=== PATIENT | male | born 1970 | race Caucasian/White ===

== ENCOUNTER 2017-01-25 18:30 | Emergency (ER) | payer OTHER ==
--- NOTE | 2017-01-25 21:12 | ED CLINICAL REPORT ---
Clinical Report - Physicians/Mid Levels [facility] [address] [place] [address] 01/25/2017 18:31 Patient: LENCHO MCDONALD Time Seen: 1921. Arrived- By private vehicle. Historian- patient. HISTORY OF PRESENT ILLNESS Chief Complaint: CHEST PAIN. At its maximum, severity described as moderate. When seen in the E.D., severity described as moderate. Modifying factors- worsened by deep breaths. Not relieved by anything. This started past few days and is still present (unchanged). It was abrupt in onset and has been constant and waxing/waning but is not gone now. Onset during rest. It is described as burning and it is described as located in the central chest area. No radiation. No nausea, vomiting or difficulty breathing. He has experienced diaphoresis. No additional chest pain. Similar symptoms previously: None. Recent medical care: Not recently seen/assessed. REVIEW OF SYSTEMS No fever, chills or pedal edema. All systems otherwise negative, except as recorded above. PAST HISTORY See nurses notes. Denies the following risk factors for DVT/PE - history of DVT and pulmonary embolism, recent surgery, recent RI and congestive heart failure. Denies the following risk factors for DVT/PE - cancer, clotting disorder, estrogens, obesity and immobility. Denies the following risk factors for DVT/PE - advanced in age and vena cava filter. Additional Surgeries: no known surgeries. Medications: Simvastatin Oral. Lisinopril Oral. ASA Oral. Doxycycline Hyclate Oral. Tramadol HCL Oral. TraZODone HCl Oral. Famotidine Oral. DULoxetine HCl Oral. Allergies: Penicillin. SOCIAL HISTORY Smoker- current status unknown. History of occasional drug use: marijuana. No alcohol use. No recent travel. Is a local resident. ADDITIONAL NOTES The nursing notes have been reviewed. PHYSICAL EXAM Vital Signs: 01/25/2017 18:41 BP: 154/80. HR: 62. RR: 18. O2 saturation: 95%. Temp: 98.8 F. Blood pressure normal. Oxygen saturation normal. Appearance: Alert. Oriented X3. No acute distress. Eyes: Pupils equal, round and reactive to light. Eyes normal inspection. ENT: Ears normal. Nose normal. Pharynx normal. Neck: Normal inspection. Neck supple. CVS: Normal heart rate and rhythm. Heart sounds normal. Pulses normal. No decreased pulses. Respiratory: No respiratory distress. Mild bilateral wheezes diffusely (R > L). Breath sounds normal. Chest nontender. No rales or rhonchi. Abdomen: Soft and nontender. Bowel sounds normal. No mass. Skin: Skin warm and dry. Normal skin color. No rash. Normal skin turgor. Extremities: Extremities exhibit normal ROM. No lower extremity edema. Neuro: Oriented X 3. No motor deficit. No sensory deficit. LABS, X-RAYS, AND EKG EKG: No acute process. No acute ischemia. Normal EKG. Normal sinus rhythm. Rate: 61. Normal P waves. Normal NICOLAS. Normal QRS complex. Normal axis. Normal ST and T waves, QT and QTc. The study has been interpreted contemporaneously. The study has been independently viewed by me. The EKG appears to be a good tracing. Chest X-ray: (PROCEDURE: XR CHEST 2 VIEW INDICATION: CHEST PAIN TECHNIQUE: PA and lateral view. COMPARISON: Chest x-ray 03/11/2014. FINDINGS: Lungs are clear. Cardiovascular structures are normal. Old left rib fracture. IMPRESSION: 1. Negative chest.). The X-rays were independently viewed by me and interpreted by the radiologist. The X-rays were discussed with the radiologist (via pacs). Laboratory Tests: CBC w Diff: (DELFIN: 01/25/2017 20:00) ( MsgRcvd 01/25/2017 20:14) Final results Test Result Flag Units (Reference) WHITE BLOOD COUNT 5.0 K/uL (4.5-11.5) RED BLOOD COUNT 5.46 M/uL (4.50-5.90) HEMOGLOBIN 16.6 gm/dL (13.5-17.5) HEMATOCRIT 49.2 % (41.0-53.0) MEAN CELL VOLUME 90 fL (80-100) MEAN CORPUSCULAR HGB 30 pg (26-34) MEAN CORPUSCULAR HGB CONC 34 g/dL (31-37) RED CELL DISTRIBUTION WIDTH 13.1 % (11.6-14.8) PLATELET COUNT 202 K/uL (150-400) NEUTROPHIL % 58.1 % (50-75) LYMPH % 24.3 L % (25-40) MONO % 15.1 H % (3-14) EOSINOPHIL % 2.1 % (0-4) BASOPHIL % 0.4 % (0-2) PT with INR: (DELFIN: 01/25/2017 20:00) ( [facility] 01/25/2017 20:38) Final results Test Result Flag Units (Reference) INR 1.0 (0.8-1.2) Low Intensity Therapy: INR 1.5-2.0 PT range 18.5-23.1Mod.Intensity Therapy: INR 2.0-3.0 PT range 23.1-31.5High Intensity Therapy: INR 2.5-3.5 PT range 27.4-35.5High Intensity Therapy 2: INR 3.0-4.0 PT range 31.5-39.3 D-DIMER QUANTITATIVE 0.27 ug/mLFEU (0.27-0.52) The primary value of this quantitative assay relates toits negative predictive value (i.e. exclusion) of pulmonaryembolism/deep vein thrombosis/DIC.Elevated levels of d-dimer may also occur with:, age, cancer, inflammation, liver disease,post-op, infection, hematoma, coronary disease, peripheralarteriopathy, bleeding disorders and thrombolytic treatment.Results should be correlated with other clinical andradiological data.Testing Methodology: Latex Immunoassay CMP: (DELFIN: 01/25/2017 20:00) ( [facility] 01/25/2017 20:32) Final results Test Result Flag Units (Reference) GLUCOSE 103 mg/dL (70-110) BUN 8 mg/dL (7-18) CREATININE 0.7 mg/dL (0.6-1.3) Estimated GFR >60 mL/min Estimated GFR- >60 mL/min Note: Persistent reduction over 3 months in eGFR<60 mL/min/1.73 m2 defines CKD. Patients with eGFR values>=60 mL/min/1.73 m2 may also have CKD if evidence ofpersistent proteinuria. Additional information may be foundat www.kidney.org. SODIUM 139 mmol/L (136-145) POTASSIUM 3.2 L mmol/L (3.5-5.1) CHLORIDE 100 mmol/L (98-107) CARBON DIOXIDE 29 mmol/L (21-32) CALCIUM 8.7 mg/dL (8.5-10.1) TOTAL PROTEIN 7.4 g/dL (6.4-8.2) ALBUMIN 3.6 g/dL (3.3-5.0) BILIRUBIN, TOTAL 0.5 mg/dL (0.0-1.0) ALKALINE PHOSPHATASE 79 U/L (46-116) AST (SGOT) 45 H U/L (15-37) ALT (SGPT) 54 U/L (12-78) TROPONIN I <0.05 L ng/mL (0.00-1.5) TROPONIN REFERENCE RANGE:<0.1 NEGATIVE0.1-1.5 INDETERMINANT>1.5 POSITIVE . PROGRESS AND PROCEDURES Course of Care: The patient is a pleasant 46-year-old male no pertinent past medical history presenting for evaluation of chest pain. Appears to be atypical in nature. At this time differential diagnosis includes pulmonary embolism, acute myocardial infarction, pneumonia. Patient is agreeable to the treatment plan. Patient will be evaluated with troponin, d-dimer, EKG, chest x-ray, Complete blood count cell count and CMP. patient appears nontoxic and is in no acute distress. Workup has been ordered. Patient's laboratory studies are remarkable for the findings above. White blood cell count is noted to be 5.0. Troponin is noted to be negative. D-dimer is also normal. With the patient's negative d-dimer, do not feel patient has pulmonary embolism, or thoracic aortic dissection. Patient's EKG also was unremarkable. With a negative troponin. Do not feel patient has acute myocardial infarction. Of note patient states that he might feel better with albuterol. Discussed with patient utility of abx. Patient agreeable to abx treatment. Feel the benefits outweigh the risks at this time. CLINICAL IMPRESSION 01/25/2017 19:45 BP: 138/88. HR: 60. RR: 16. O2 saturation: 94%. Pain level now: 0/10. Blood pressure normal. Oxygen saturation normal. Atypical chest pain .12 lead EKG performed. Acute bacterial bronchitis. Acute bronchospasm INSTRUCTIONS Warnings: GENERAL WARNINGS: Return or contact your physician immediately if your condition worsens or changes unexpectedly, if not improving as expected, or if other problems arise. SPECIFICALLY, return if you develop chest, neck, jaw, shoulder, arm, or back pain, difficulty breathing, a fluttering sensation in your chest, lightheadedness, fainting, excessive fatigue, or sudden sweating. Your Current Medications: CONTINUE TAKING THE FOLLOWING MEDICATIONS: ASA Oral. Doxycycline Hyclate Oral. DULoxetine HCl Oral. Famotidine Oral. Lisinopril Oral. Simvastatin Oral. Tramadol HCL Oral. TraZODone HCl Oral. Prescription Medications: Albuterol HFA oral inhaler: inhale 1-2 puffs via spacer every 4 hours as needed for wheezing, difficulty breathing or shortness of breath. Dispense one (1) unit. No refill. Zithromax Z-Gomez: Take according to package instructions. No refills. Substitution is permissible. Prednisone 50 mg: take 1 orally for 5 days. Dispense five (5). No refills. Follow-up: Return to the emergency department as needed. Follow up with your doctor in three days. Reason for referral: recheck today's concerns. Summary of care provided to patient via paper. Screening today revealed the patient's blood pressure to be in the normal range. The patient should follow up with a primary care provider for blood pressure management. Understanding of the discharge instructions verbalized by patient. (Electronically signed by Romario Currie Dr. 02/02/2017 4:26)
--- NOTE | 2017-01-25 21:13 | ED ORDER SUMMARY ---
..... Patient: LENCHO MCDONALD OrderSheet [facility] VisitID: [id number] [place] [address] 46y, M Registration Date/Time: 01/25/2017 ORDER SHEET Weight: 90.7 kg (stated) Allergies: Penicillin GENERAL ORDERS: Round Up Ring Hand (Continuous) (chest pain) (19:01/25/2017 Dimitry Maddox) (Ack 19:29 OSnell) (20:07 CARLIEradburn R.N.) CBC w Diff Urgent (:01/25/2017 Dimitry Maddox) (Ack 19:29 OSnell) (20:07 Roxanne R.N.) CMP Urgent (:01/25/2017 Dimitry Maddox) (Ack 19:29 OSnell) (20:07 Roxanne R.N.) PT with INR Urgent (:01/25/2017 Dimitry Maddox) (Ack 19:29 OSnell) (20:07 CARLIEradburn R.N.) D-Dimer Urgent (19:01/25/2017 Dimitry Maddox) (Ack 19:29 OSnell) (20:07 Roxanne R.N.) Troponin-I Urgent (:01/25/2017 Dimitry Maddox) (Ack 19:29 OSnell) (20:07 Roxanne R.N.) Pulse oximeter (:01/25/2017 Dimtiry Maddox) (Ack 19:29 OSnell) (19:57 CARLIEradburn R.N.) EKG - ER Stat (:01/25/2017 Dimitry Maddox) (Ack 19:28 OSnell) (19:57 Roxanne R.N.) Chest 2V Urgent (19:34 01/25/2017 Dimitry Maddox) (Ack 19:40 OSnell) (20:24 CBradburn R.N.) MEDICATION ORDERS: DuoNeb Neb Tx 1 unit dose (NOW) (20:16 01/25/2017 Dimitry Maddox) (Ack 20:17 HSoule) (20:41 HSoule) GI Cocktail WHITE PO 30 mL (NOW) (20:38 01/25/2017 Dimitry Maddox) (Ack 20:41 HSoule) (20:47 CBboyd R.N.) Albuterol Neb Tx 5 mg (once now) (21:01 01/25/2017 Dimitry Maddox) (Ack 21:17 CBrademerald R.N.) (21:18 CBboyd R.N.) Prednisone PO 60 mg (NOW) (21:10 01/25/2017 Dimitry Maddox) (21:37 Roxanne R.N.) Azithromycin PO 500 mg (NOW) (21:11 01/25/2017 Dimitry Maddox) (21:37 Roxanne R.N.) IV FLUIDS: IV Saline Lock (19:27 01/25/2017 Dimitry Maddox) (Ack 19:52 CBrademerald R.N.) (20:07 Roxanne R.N.) ORDER SHEET NOTES: [Electronically signed by Veronique Michele R.N. (22:09 01/25/2017)] [Electronically signed by Romario Currie Dr. (04:26 02/02/2017)] [Electronically locked/signed by Veronique Michele R.N. (22:09 01/25/2017)]
--- NOTE | 2017-01-25 21:13 | ED ORDER SUMMARY ---
..... Patient: LENCHO MCDONALD OrderSheet [facility] VisitID: [id number] [place] [address] 46y, M Registration Date/Time: 01/25/2017 ORDER SHEET Weight: 90.7 kg (stated) Allergies: Penicillin GENERAL ORDERS: Informatics Pharmacist (Continuous) (chest pain) (19:01/25/2017 Dimitry Maddox) (Ack 19:29 OSnell) (20:07 CARLIEradburn R.N.) CBC w Diff Urgent (:01/25/2017 Dimitry Maddox) (Ack 19:29 OSnell) (20:07 Roxanne R.N.) CMP Urgent (:01/25/2017 Dimitry Maddox) (Ack 19:29 OSnell) (20:07 Roxanne R.N.) PT with INR Urgent (:01/25/2017 Dimitry Maddox) (Ack 19:29 OSnell) (20:07 CARLIEradburn R.N.) D-Dimer Urgent (19:01/25/2017 Dimitry Maddox) (Ack 19:29 OSnell) (20:07 Roxanne R.N.) Troponin-I Urgent (:01/25/2017 Dimitry Maddox) (Ack 19:29 OSnell) (20:07 Roxanne R.N.) Pulse oximeter (:01/25/2017 Dimitry Maddox) (Ack 19:29 OSnell) (19:57 CARLIEradburn R.N.) EKG - ER Stat (:01/25/2017 Dimitry Maddox) (Ack 19:28 OSnell) (19:57 Roxanne R.N.) Chest 2V Urgent (19:34 01/25/2017 Dimitry Maddox) (Ack 19:40 OSnell) (20:24 CBradburn R.N.) MEDICATION ORDERS: DuoNeb Neb Tx 1 unit dose (NOW) (20:16 01/25/2017 Dimitry Maddox) (Ack 20:17 HSoule) (20:41 HSoule) GI Cocktail WHITE PO 30 mL (NOW) (20:38 01/25/2017 Dimitry Maddox) (Ack 20:41 HSoule) (20:47 CBboyd R.N.) Albuterol Neb Tx 5 mg (once now) (21:01 01/25/2017 Dimitry Maddox) (Ack 21:17 CBrademerald R.N.) (21:18 CBboyd R.N.) Prednisone PO 60 mg (NOW) (21:10 01/25/2017 Dimitry Maddox) (21:37 Roxanne R.N.) Azithromycin PO 500 mg (NOW) (21:11 01/25/2017 Dimitry Maddox) (21:37 Roxanne R.N.) IV FLUIDS: IV Saline Lock (19:27 01/25/2017 Dimitry Maddox) (Ack 19:52 CBrademerald R.N.) (20:07 Roxanne R.N.) ORDER SHEET NOTES: [Electronically signed by Veronique Michele R.N. (22:09 01/25/2017)] [Electronically signed by Romario Currie Dr. (04:26 02/02/2017)] [Electronically locked/signed by Veronique Michele R.N. (22:09 01/25/2017)]
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
--- NOTE | 2017-01-25 21:39 | DIAGNOSTIC IMAGING REPORT ---
PROCEDURE: XR CHEST 2 VIEW INDICATION: CHEST PAIN TECHNIQUE: PA and lateral view. COMPARISON: Chest x-ray 03/11/2014. FINDINGS: Lungs are clear. Cardiovascular structures are normal. Old left rib fracture. IMPRESSION: 1. Negative chest.
--- NOTE | 2017-02-02 04:26 | ED MAR SUMMARY ---
..... Medication Administration Record [facility] [address] [facility] [place] [address] Patient: LENCHO MCDONALD Visit ID: [id number] 46y, M Weight: 90.7 kg Height/Length: 73 in BMI: 26.4 ALLERGIES: Penicillin Given 20:41 01/25/2017 Krystin Layton,, Stop 20:47 01/25/2017 Veronique Michele R.N. Medication Administered: DUONEB [NEB TX] (IPRATROPIUM-ALBUTEROL), Dose: 1 unit dose Nebulizer Neb TX. Medication Ordered: DuoNeb Neb Tx 1 unit dose (NOW). Given 20:47 01/25/2017 Veronique Michele R.N. Medication Administered: GI COCKTAIL WHITE [PO] (SIMETHICONE), Dose: 50 mL Oral Suspension PO. Medication Ordered: GI Cocktail WHITE PO 30 mL (NOW). Given 21:17 01/25/2017 Veronique Michele R.N., Stop 21:30 01/25/2017 Veronique Michele R.N. Medication Administered: ALBUTEROL [NEB TX], Dose: 5 mg Nebulizer Neb TX. Medication Ordered: Albuterol Neb Tx 5 mg (once now). Given 21:01/25/2017 Veronique Michele R.N. Medication Administered: PREDNISONE [PO], Dose: 60 mg Tablets PO. Medication Ordered: Prednisone PO 60 mg (NOW). Given 21:01/25/2017 Veronique Michele R.N. Medication Administered: AZITHROMYCIN [PO], Dose: 500 mg Tablets PO. Medication Ordered: Azithromycin PO 500 mg (NOW).
--- NOTE | 2017-02-02 04:26 | ED MAR SUMMARY ---
..... Medication Administration Record [facility] [address] [facility] [place] [address] Patient: LENCHO MCDONALD Visit ID: [id number] 46y, M Weight: 90.7 kg Height/Length: 73 in BMI: 26.4 ALLERGIES: Penicillin Given 20:41 01/25/2017 Krystin Layton,, Stop 20:47 01/25/2017 Veronique Michele R.N. Medication Administered: DUONEB [NEB TX] (IPRATROPIUM-ALBUTEROL), Dose: 1 unit dose Nebulizer Neb TX. Medication Ordered: DuoNeb Neb Tx 1 unit dose (NOW). Given 20:47 01/25/2017 Veronique Michele R.N. Medication Administered: GI COCKTAIL WHITE [PO] (SIMETHICONE), Dose: 50 mL Oral Suspension PO. Medication Ordered: GI Cocktail WHITE PO 30 mL (NOW). Given 21:17 01/25/2017 Veronique Michele R.N., Stop 21:30 01/25/2017 Veronique Michele R.N. Medication Administered: ALBUTEROL [NEB TX], Dose: 5 mg Nebulizer Neb TX. Medication Ordered: Albuterol Neb Tx 5 mg (once now). Given 21:01/25/2017 Veronique Michele R.N. Medication Administered: PREDNISONE [PO], Dose: 60 mg Tablets PO. Medication Ordered: Prednisone PO 60 mg (NOW). Given 21:01/25/2017 Veronique Michele R.N. Medication Administered: AZITHROMYCIN [PO], Dose: 500 mg Tablets PO. Medication Ordered: Azithromycin PO 500 mg (NOW).
--- NOTE | 2017-02-02 04:26 | ED MED RECONCILIATION SUMMARY ---
Patient: LENCHO MCDONALD Medication Reconciliation Report [facility] VisitID: [id number] [address] [place] [address] 46y, M Registration Date/Time: 01/25/2017 Weight: 90.7 kg Height/Length: 73 in. BMI: 26.4 ALLERGIES: Penicillin The patient's Home Medications are listed below: CONTINUE TAKING THE FOLLOWING MEDICATIONS: ASA Oral Doxycycline Hyclate Oral DULoxetine HCl Oral Famotidine Oral Lisinopril Oral Simvastatin Oral Tramadol HCL Oral TraZODone HCl Oral The source(s) of the original Home Medication information: Not obtained. The following Medications were given to the patient in the Emergency Department: Duoneb [Neb Tx] Neb TX 1 unit dose, administered: 01/25/2017 8:41:00 PM GI COCKTAIL WHITE [PO] PO 50 mL, administered: 01/25/2017 8:47:00 PM Albuterol [Neb Tx] Neb TX 5 mg, administered: 01/25/2017 9:17:00 PM Prednisone [PO] PO 60 mg, administered: 01/25/2017 9:31:00 PM Azithromycin [PO] PO 500 mg, administered: 01/25/2017 9:31:00 PM The following Medications were prescribed to the patient: Albuterol HFA oral inhaler: inhale 1-2 puffs via spacer every 4 hours as needed for wheezing, difficulty breathing or shortness of breath. Dispense one (1) unit. No refill. -- Romario Currie Dr. Zithromax Z-Gomez: Take according to package instructions. No refills. Substitution is permissible. -- Romario Currie Dr. Prednisone 50 mg: take 1 orally for 5 days. Dispense five (5). No refills. -- Romario Currie Dr.
--- NOTE | 2017-02-02 04:26 | ED MED RECONCILIATION SUMMARY ---
Patient: LENCHO MCDONALD Medication Reconciliation Report [facility] VisitID: [id number] [address] [place] [address] 46y, M Registration Date/Time: 01/25/2017 Weight: 90.7 kg Height/Length: 73 in. BMI: 26.4 ALLERGIES: Penicillin The patient's Home Medications are listed below: CONTINUE TAKING THE FOLLOWING MEDICATIONS: ASA Oral Doxycycline Hyclate Oral DULoxetine HCl Oral Famotidine Oral Lisinopril Oral Simvastatin Oral Tramadol HCL Oral TraZODone HCl Oral The source(s) of the original Home Medication information: Not obtained. The following Medications were given to the patient in the Emergency Department: Duoneb [Neb Tx] Neb TX 1 unit dose, administered: 01/25/2017 8:41:00 PM GI COCKTAIL WHITE [PO] PO 50 mL, administered: 01/25/2017 8:47:00 PM Albuterol [Neb Tx] Neb TX 5 mg, administered: 01/25/2017 9:17:00 PM Prednisone [PO] PO 60 mg, administered: 01/25/2017 9:31:00 PM Azithromycin [PO] PO 500 mg, administered: 01/25/2017 9:31:00 PM The following Medications were prescribed to the patient: Albuterol HFA oral inhaler: inhale 1-2 puffs via spacer every 4 hours as needed for wheezing, difficulty breathing or shortness of breath. Dispense one (1) unit. No refill. -- Romario Currie Dr. Zithromax Z-Gomez: Take according to package instructions. No refills. Substitution is permissible. -- Romario Currie Dr. Prednisone 50 mg: take 1 orally for 5 days. Dispense five (5). No refills. -- Romario Currie Dr.
--- NOTE | 2017-02-02 04:26 | ED DISCHARGE INSTRUCTIONS ---
Patient: LENCHO MCDONALD General Instructions [facility] VisitID: [id number] [address] [place] [address] 46y, M Registration Date/Time: 01/25/2017 01/25/2017 19:45 BP: 138/88. HR: 60. RR: 16. O2 saturation: 94%. Pain level now: 0/10. Blood pressure normal. Oxygen saturation normal. Atypical chest pain .12 lead EKG performed. Acute bacterial bronchitis. Acute bronchospasm INSTRUCTIONS Warnings: GENERAL WARNINGS: Return or contact your physician immediately if your condition worsens or changes unexpectedly, if not improving as expected, or if other problems arise. SPECIFICALLY, return if you develop chest, neck, jaw, shoulder, arm, or back pain, difficulty breathing, a fluttering sensation in your chest, lightheadedness, fainting, excessive fatigue, or sudden sweating. Your Current Medications: CONTINUE TAKING THE FOLLOWING MEDICATIONS: ASA Oral. Doxycycline Hyclate Oral. DULoxetine HCl Oral. Famotidine Oral. Lisinopril Oral. Simvastatin Oral. Tramadol HCL Oral. TraZODone HCl Oral. Prescription Medications: Albuterol HFA oral inhaler: inhale 1-2 puffs via spacer every 4 hours as needed for wheezing, difficulty breathing or shortness of breath. Dispense one (1) unit. No refill. Zithromax Z-Gomez: Take according to package instructions. No refills. Substitution is permissible. Prednisone 50 mg: take 1 orally for 5 days. Dispense five (5). No refills. Follow-up: Return to the emergency department as needed. Follow up with your doctor in three days. Reason for referral: recheck today's concerns. Summary of care provided to patient via paper. Screening today revealed the patient's blood pressure to be in the normal range. The patient should follow up with a primary care provider for blood pressure management. Understanding of the discharge instructions verbalized by patient. ADDITIONAL INFORMATION Chest Pain, Uncertain Cause Chest pain can happen for a number of reasons. Sometimes the cause can not be determined. If yourcondition does not seem serious, and your pain does not appear to be coming from your heart, your doctor may recommend watching it closely. Sometimes the signs of a serious problem take more time to appear. Therefore, watch for the warning signs listed below. Home care After your visit, follow these recommendations: Rest today and avoid strenuous activity. Take any prescribed medicine as directed. Follow-up care Follow up with your doctor or this facility as instructed or if you do not start to feel better within 24 hours. Call 911 Get immediate medical attention if any of the following occur: A change in the type of pain: if it feels different, becomes more severe, lasts longer, or begins to spread into your shoulder, arm, neck, jaw or back Shortness of breath or increased pain with breathing Weakness, dizziness, or fainting Rapid heart beat Get prompt medical attention Call your doctor right away if any of the following occur: Cough with dark colored sputum (phlegm) or blood Fever of 100.4F(38C) or higher, or as directed by your health care provider Swelling, pain or redness in one leg Bronchitis (Adult: Abx Tx) BRONCHITIS is an infection of the air passages (bronchial tubes). It often occurs during the common cold. Symptoms include cough with mucus (phlegm) and low-grade fever. Bronchitis usually lasts 7-14 days. Mild cases can be treated with simple home remedies. More severe infection is treated with an antibiotic. Home Care: If symptoms are severe, rest at home for the first 2-3 days. When you resume activity, don't let yourself get too tired. Do not smoke. Avoid being exposed to the smoke of others. You may use acetaminophen (Tylenol) or ibuprofen (Motrin, Advil) to control fever or pain, unless another medicine was prescribed for this. [NOTE: If you have chronic liver or kidney disease or ever had a stomach ulcer or GI bleeding, talk with your doctor before using these medicines.] Your appetite may be poor, so a light diet is fine. Avoid dehydration by drinking 6-8 glasses of fluids per day (water, soft, drinks, juices, tea, soup, etc.). Extra fluids will help loosen secretions in the lungs. Lnze-geq-gfndmzm cough medicines that containdextromethorphan(such as Robitussin DM) and decongestants (Actifed or Sudafed) may help relieve cough and congestion. [NOTE: Do not use decongestants if you have high blood pressure.] Finish all antibiotic medicine, even if you are feeling better after only a few days. Follow Up with your doctor or as directed if you dont start to feel better after three days. [NOTE: If you are age 65 or older, or if you have chronic asthma or COPD, we recommend a PNEUMOCOCCAL VACCINATION every five years and a yearly INFLUENZAVACCINATION (FLU-SHOT) every . Ask your doctor about this. If you had an X-ray, a radiologist will review it. You will be notified of any new findings that may affect your care.] Get Prompt Medical Attention if any of the following occur: Fever over 100.4F (38.0C) for more than three days Trouble breathing, wheezing or pain with breathing Coughing up blood or increased amounts of colored sputum Weakness, drowsiness, headache, facial pain, ear pain or a stiff neck Bronchospasm (Adult) Bronchospasm occurs when the airways (bronchial tubes) go into spasm and contract. This makes it hard to breathe and causes wheezing (a high-pitched whistling sound). Bronchospasm can also cause frequent coughing without the wheezing sound. Bronchospasm is due to irritation, inflammation or allergic reaction of the airways. People with asthma get bronchospasm. However, not everyone with bronchospasm has asthma. Being exposed to harmful fumes, a recent case of bronchitis, or a flare-up of chronic emphysema (COPD) may cause the airways to spasm. An episode of bronchospasm may last 7-14 days. Medicine may be prescribed to relax the airways and prevent wheezing. Antibiotics will be prescribed only if your doctor thinks there is a bacterial infection. Antibiotics do not help a viral infection. Home Care: Drink lots of water or other fluids (at least 10 glasses a day) during an attack. This will loosen lung secretions and make it easier to breathe. If you have heart or kidney disease, check with your doctor before you drink extra amounts of fluids. Take prescribed medicine exactly at the times advised. If you have a hand-held inhaler or aerosol breathing medicine, do not use it more than once every four hours, unless told to do so. If prescribed an antibiotic or prednisone, take all of the medicine even if you are feeling better after a few days. Do not smoke. Avoid being exposed to the smoke of others. If you were given an inhaler, use it exactly as directed. If you need to use it more often than prescribed, your condition may be getting worse. Contact your doctor or this facility. Follow Up With Your Doctor, Or As Directed. [ NOTE: If you are age 65 or older, or if you have chronic asthma or COPD, we recommend a PNEUMOCOCCAL VACCINATION every five years and a yearly INFLUENZA VACCINATION (FLU-SHOT) every . Ask your doctor about this.] Get Prompt Medical Attention If Any Of The Following Occur: Increased wheezing or shortness of breath Need to use your inhalers more often than usual without relief Fever of 100.4F (38C) or higher, or as directed by your healthcare provider Coughing up lots of dark-colored or bloody sputum (mucus) Chest pain with each breath You do not start to improve within 24 hours Albuterol Sulfate Pressurized inhalation, suspension What is this medicine? ALBUTEROL (al BYOO ter ole) is a bronchodilator. It helps open up the airways in your lungs to make it easier to breathe. This medicine is used to treat and to prevent bronchospasm. How should I use this medicine? This medicine is for inhalation through the mouth. Follow the directions on your prescription label. Take your medicine at regular intervals. Do not use more often than directed. Make sure that you are using your inhaler correctly. Ask you doctor or health care provider if you have any questions. Talk to your roof tiler regarding the use of this medicine in children. Special care may be needed. What side effects may I notice from receiving this medicine? Side effects that you should report to your doctor or health regular senior care provider as soon as possible: allergic reactions like skin rash, itching or hives, swelling of the face, lips, or tongue breathing problems chest pain feeling faint or lightheaded, falls high blood pressure irregular heartbeat fever muscle cramps or weakness pain, tingling, numbness in the hands or feet vomiting Side effects that usually do not require medical attention (report to your doctor or health regular senior care provider if they continue or are bothersome): cough difficulty sleeping headache nervousness or trembling stomach upset stuffy or runny nose throat irritation unusual taste What may interact with this medicine? anti-infectives like chloroquine and pentamidine caffeine cisapride diuretics medicines for colds medicines for depression or for emotional or psychotic conditions medicines for weight loss including some herbal products methadone some antibiotics like clarithromycin, erythromycin, levofloxacin, and linezolid some heart medicines steroid hormones like dexamethasone, cortisone, hydrocortisone theophylline thyroid hormones What if I miss a dose? If you miss a dose, use it as soon as you can. If it is almost time for your next dose, use only that dose. Do not use double or extra doses. Where should I keep my medicine? Keep out of the reach of children. Store at room temperature between 15 and 30 degrees C (59 and 86 degrees F). The contents are under pressure and may burst when exposed to heat or flame. Do not freeze. This medicine does not work as well if it is too cold. Throw away any unused medicine after the expiration date. Inhalers need to be thrown away after the labeled number of puffs have been used or by the expiration date; whichever comes first. Ventolin HFA should be thrown away 12 months after removing from foil pouch. Check the instructions that come with your medicine. What should I tell my health care provider before I take this medicine? They need to know if you have any of the following conditions: diabetes heart disease or irregular heartbeat high blood pressure pheochromocytoma seizures thyroid disease an unusual or allergic reaction to albuterol, levalbuterol, sulfites, other medicines, foods, dyes, or preservatives or trying to get breast-feeding What should I watch for while using this medicine? Tell your doctor or health regular senior care provider if your symptoms do not improve. Do not use extra albuterol. If your asthma or bronchitis gets worse while you are using this medicine, call your doctor right away. If your mouth gets dry try chewing sugarless gum or sucking hard candy. Drink water as directed. Prednisone Oral tablet What is this medicine? PREDNISONE (PRED ni sone) is a corticosteroid. It is commonly used to treat inflammation of the skin, joints, lungs, and other organs. Common conditions treated include asthma, allergies, and arthritis. It is also used for other conditions, such as blood disorders and diseases of the adrenal glands. How should I use this medicine? Take this medicine by mouth with a glass of water. Follow the directions on the prescription label. Take this medicine with food. If you are taking this medicine once a day, take it in the morning. Do not take more medicine than you are told to take. Do not suddenly stop taking your medicine because you may develop a severe reaction. Your doctor will tell you how much medicine to take. If your doctor wants you to stop the medicine, the dose may be slowly lowered over time to avoid any side effects. Talk to your roof tiler regarding the use of this medicine in children. Special care may be needed. What side effects may I notice from receiving this medicine? Side effects that you should report to your doctor or health regular senior care provider as soon as possible: allergic reactions like skin rash, itching or hives, swelling of the face, lips, or tongue changes in emotions or moods changes in vision depressed mood eye pain fever or chills, cough, sore throat, pain or difficulty passing urine increased thirst swelling of ankles, feet Side effects that usually do not require medical attention (report to your doctor or health regular senior care provider if they continue or are bothersome): confusion, excitement, restlessness headache nausea, vomiting skin problems, acne, thin and shiny skin trouble sleeping weight gain What may interact with this medicine? Do not take this medicine with any of the following medications: metyrapone mifepristone This medicine may also interact with the following medications: aminoglutethimide amphotericin B aspirin and aspirin-like medicines barbiturates certain medicines for diabetes, like glipizide or glyburide cholestyramine cholinesterase inhibitors cyclosporine digoxin diuretics ephedrine female hormones, like estrogens and control pills isoniazid ketoconazole NSAIDS, medicines for pain and inflammation, like ibuprofen or naproxen phenytoin rifampin toxoids vaccines warfarin What if I miss a dose? If you miss a dose, take it as soon as you can. If it is almost time for your next dose, talk to your doctor or health regular senior care provider. You may need to miss a dose or take an extra dose. Do not take double or extra doses without advice. Where should I keep my medicine? Keep out of the reach of children. Store at room temperature between 15 and 30 degrees C (59 and 86 degrees F). Protect from light. Keep container tightly closed. Throw away any unused medicine after the expiration date. What should I tell my health care provider before I take this medicine? They need to know if you have any of these conditions: Carolann's syndrome diabetes glaucoma heart disease high blood pressure infection (especially a virus infection such as chickenpox, cold sores, or herpes) kidney disease liver disease mental illness myasthenia gravis osteoporosis seizures stomach or intestine problems thyroid disease an unusual or allergic reaction to lactose, prednisone, other medicines, foods, dyes, or preservatives or trying to get breast-feeding What should I watch for while using this medicine? Visit your doctor or health regular senior care provider for regular checks on your progress. If you are taking this medicine over a prolonged period, carry an identification card with your name and address, the type and dose of your medicine, and your doctor's name and address. This medicine may increase your risk of getting an infection. Tell your doctor or health regular senior care provider if you are around anyone with measles or chickenpox, or if you develop sores or blisters that do not heal properly. If you are going to have surgery, tell your doctor or health regular senior care provider that you have taken this medicine within the last twelve months. Ask your doctor or health regular senior care provider about your diet. You may need to lower the amount of salt you eat. This medicine may affect blood sugar levels. If you have diabetes, check with your doctor or health regular senior care provider before you change your diet or the dose of your diabetic medicine. You have been given the following additional information: Chest Pain, Uncertain Cause Bronchitis, Antiobiotic Treatment (Adult) Bronchospasm (Adult) Albuterol Sulfate Pressurized inhalation, suspension Prednisone Oral tablet (Electronically signed by Romario Currie Dr. 02/02/2017 4:26)
== END 2017-01-25 22:10 | disposition home or self-care (01) ==
LOC: ED SRH 18:30
DX: J20.8 Acute bronchitis due to other specified organisms (principal); J98.01 Acute bronchospasm; Z79.899 Other long term (current) drug therapy; Z88.0 Allergy status to penicillin
CPT/HCPCS: 90100; 90616; 91556; 94060; 95059